=== PATIENT | male | born 1995 | race Caucasian/White ===

== ENCOUNTER 2024-02-12 16:40 | Emergency (ER) | payer OTHER ==
[~2024-02-12] VITALS: Ht 167.6 cm; Wt 71.2 kg
[2024-02-12] MEDS ORDERED: FLUORESCEIN SODIUM OPHTH 1 EA STRIP ONE (17:08)
[2024-02-12] MEDS: TETRACAINE HCL 2% OPHTHALIC 30 ML BOTTLE EACHEYE ONE (17:29)
[2024-02-12] MEDS: FLUORESCEIN SODIUM OPHTH 1 EA STRIP OP ONE (17:30)
[2024-02-12] MEDS ORDERED: OFLO5DRO6 LEFTEYE (17:30)
[2024-02-12 17:39] VITALS: BP 146/60; TEMP 98.2; O2SAT 98
== END 2024-02-12 17:40 | disposition home or self-care (01) ==
LOC: ER 16:50
DX: H57.8A1 Foreign body sensation, right eye (principal)

== ENCOUNTER 2024-11-10 12:32 | Emergency (ER) | payer OTHER ==
[~2024-11-10] VITALS: Ht 162.6 cm; Wt 59.0 kg
[~2024-11-10 12:32] MED LIST: OFLO5DRO6 LEFTEYE
[2024-11-10 12:55] VITALS: TEMP 98.3
[2024-11-10] MEDS ORDERED: KETOROLAC TROMETHAMINE 15 MG/ML VIAL ONE (14:05)
[2024-11-10] MEDS ORDERED: LIDOCAINE 5% (PATCH) 1 EA PATCH TP ONE (14:05)
[2024-11-10] MEDS: KETOROLAC TROMETHAMINE 15 MG/ML VIAL IM ONE (14:16)
[2024-11-10] MEDS: LIDOCAINE 5% (PATCH) 1 EA PATCH TP SCH (14:17)
[2024-11-10] MEDS ORDERED: CYCL5TAB PO (15:58)
[2024-11-10] MEDS ORDERED: LIDO30AD10 TP (15:58)
[2024-11-10] MEDS ORDERED: IBUP-1955 PO (15:58)
[2024-11-10 16:08] VITALS: BP 128/78; O2SAT 99
== END 2024-11-10 16:09 | disposition home or self-care (01) ==
LOC: ER 12:34
DX: S39.92XA Unspecified injury of lower back, initial encounter (principal); M51.372 Other intervertebral disc degeneration, lumbosacral region with discogenic back pain and lower extremity pain; Z79.899 Other long term (current) drug therapy; W17.89XA Other fall from one level to another, initial encounter; Y93.89 Activity, other specified; Y92.89 Other specified places as the place of occurrence of the external cause; Y99.8 Other external cause status
CPT/HCPCS: 99283; 96372; 72100; J1885